=== PATIENT | male | born 1955 | race Caucasian/White ===

== ENCOUNTER → 2017-01-23 | Outpatient (CLI) | payer BC, OTHER ==
[~2017-01-23] MED LIST: HYDR25TA4 PO; LOSA25TA13 PO; NITR0.4T48 SL; SIMV40TA2 PO
[2017-01-23 08:32] LABS: BASOPHILS # (AUTO) 0.1 K/uL (0.0-8.0); BASOPHILS % (AUTO) 0.7 % (0.0-2.0); EOSINOPHILS # (AUTO) 0.3 K/uL (0.0-0.7); EOSINOPHILS % (AUTO) 2.7 % (0.0-7.0); HEMATOCRIT 43.8 % (40-50); HEMOGLOBIN 14.9 G/DL (14.0-18.0); LYMPHOCYTES # (AUTO) 3.2 K/UL (0.8-4.8); LYMPHOCYTES % (AUTO) 32.6 % (20.5-51.5); MEAN CORPUSCULAR HEMOGLOBIN 32.4 UUG (27.0-31.0); MEAN CORPUSCULAR HGB CONC 34 g/dL (32.0-37.0); MEAN CORPUSCULAR VOLUME 95.5 FL (82.0-92.0); MONOCYTES # (AUTO) 0.9 K/UL (0.1-1.30); MONOCYTES % (AUTO) 8.9 % (0.0-11.0); NEUTROPHILS # (AUTO) 5.2 K/UL (1.8-8.9); NEUTROPHILS % (AUTO) 55.1 % (38.5-71.5); PLATELET COUNT (AUTO) 290 K/UL (150-450); RED BLOOD CELL COUNT(AUTO) 4.59 MIL/UL (4.7-6.1); WHITE BLOOD COUNT (AUTO) 9.7 K/UL (4.0-11.2)
[2017-01-23 08:55] LABS: BILIRUBIN,TOTAL 0.3 mg/dL (0.2-1.0); POTASSIUM 3.6 mmol/L (3.5-5.1); TOTAL PROTEIN, SERUM 7.5 g/dL (6.4-8.2)
[2017-01-23 09:23] LABS: THYROID STIMULATING HORMONE 3.499 mIU/mL (0.358-3.740)
== END | disposition home or self-care (01) ==
LOC: LAB 08:03
DX: I25.10 Atherosclerotic heart disease of native coronary artery without angina pectoris (principal); E11.9 Type 2 diabetes mellitus without complications; E78.5 Hyperlipidemia, unspecified; I10 Essential (primary) hypertension
CPT/HCPCS: 36415; 82306; 84443; 85025

== ENCOUNTER 2017-04-19 13:21 | Outpatient (CLI) | payer BC, OTHER | END 2017-04-19 23:59 | disposition home or self-care (01) | LOC: LAB 13:21 | PROVIDERS: ATTEND Internal Medicine Cardiovascular Disease | DX: I65.23 Occlusion and stenosis of bilateral carotid arteries (principal) | CPT/HCPCS: 93880 ==

== ENCOUNTER 2017-08-03 12:04 | Emergency (ER) | payer BC, OTHER ==
[~2017-08-03] VITALS: Ht 172.7 cm; Wt 88.5 kg
[2017-08-03] MEDS ORDERED: IV NORMAL SALINE 500 ML BAG IV ONE (12:30)
[2017-08-03] MEDS ORDERED: NITROGLYCERIN 0.4 MG/TAB BOTTLE SL ONE ×2 (12:30→12:58)
[2017-08-03] MEDS ORDERED: ASPIRIN 325 MG TABLET PO ONE (12:30)
--- NOTE | 2017-08-03 12:45 | NUR ---
1300 Received ALOX4 with pt c/o chest pain that started on and that was intermittent in nature. Pt states that he is not having CP at this time and nitro SL held at this time but other medications given with no adverse reaction noted at this time SEE AUG.
[2017-08-03 12:49] LABS: BASOPHILS # (AUTO) 0.1 K/uL (0.0-8.0); BASOPHILS % (AUTO) 1.2 % (0.0-2.0); EOSINOPHILS # (AUTO) 0.3 K/uL (0.0-0.7); HEMATOCRIT 42.3 % (36.7-47.1); HEMOGLOBIN 14.5 g/dL (12.5-16.3); LYMPHOCYTES # (AUTO) 3.1 K/uL (20.0-40.0); LYMPHOCYTES % (AUTO) 36.1 % (20.5-51.5); MEAN CORPUSCULAR HEMOGLOBIN 32.3 uug (23.8-33.4); MEAN CORPUSCULAR HGB CONC 34 g/dL (32.5-36.3); MEAN CORPUSCULAR VOLUME 93.9 fL (73.0-96.2); MONOCYTES # (AUTO) 0.8 K/uL (2.0-10.0); MONOCYTES % (AUTO) 9.2 % (0.0-11.0); NEUTROPHILS # (AUTO) 4.2 K/uL (1.8-8.9); NEUTROPHILS % (AUTO) 49.5 % (38.5-71.5); PLATELET COUNT (AUTO) 240 K/uL (152-348); WHITE BLOOD COUNT (AUTO) 8.5 K/uL (3.6-10.2)
[2017-08-03] MEDS ORDERED: ASPIRIN 325 MG TABLET ONE (12:58)
[2017-08-03 13:03] LABS: POTASSIUM 4.6 mmol/L (3.5-5.1)
[2017-08-03] MEDS ORDERED: CLOP75TA15 PO (13:14)
[2017-08-03] MEDS ORDERED: METO-357 PO (13:14)
[2017-08-03] MEDS ORDERED: ATOR40TA PO (13:14)
[2017-08-03] MEDS ORDERED: GEMF600T3 PO (13:14)
[2017-08-03] MEDS ORDERED: SITA1TAB6 PO (13:14)
[2017-08-03] MEDS ORDERED: GLIM1TAB3 PO (13:14)
[2017-08-03 13:17] LABS: BILIRUBIN,DIRECT 0.1 mg/dL (0.0-0.2); BILIRUBIN,TOTAL 0.3 mg/dL (0.2-1.0); TOTAL PROTEIN, SERUM 7.2 g/dL (6.4-8.2)
--- NOTE | 2017-08-03 13:36 | NUR ---
Home with ACI and sl dc'd prior to pt going home in stable conditon with family member at bedside.
== END 2017-08-03 13:47 | disposition home or self-care (01) ==
LOC: ER 12:05
DX: R07.9 Chest pain, unspecified (principal); F17.200 Nicotine dependence, unspecified, uncomplicated; I25.10 Atherosclerotic heart disease of native coronary artery without angina pectoris; I10 Essential (primary) hypertension; E11.9 Type 2 diabetes mellitus without complications; Z95.5 Presence of coronary angioplasty implant and graft
CPT/HCPCS: 36415; 70030-TC; 71045; 85025; 85730; 93005; A4663; J7040